=== PATIENT | male | born 1945 | race Caucasian/White ===

== ENCOUNTER 2017-06-09 07:43 | Day surgery (SDC) | payer OTHER, MEDICAID ==
[2017-06-09] MEDS ORDERED: NS 500 ML IV 500 ML IV ONE (07:52)
[2017-06-09] MEDS ORDERED: TETRACAINE 0.5% OPHTH 1 DOSE AFFEYE ONE ×3 (08:00→11:26)
[2017-06-09] MEDS ORDERED: VIGAMOX 0.5% OPHTH 1 DOSE AFFEYE ONE ×6 (08:05→11:42)
[2017-06-09] MEDS ORDERED: PROLENSA OPHTH 1 DOSE AFFEYE ONE (08:16)
[2017-06-09] MEDS ORDERED: ALPHAGAN-P OPHTH 1 DOSE AFFEYE ONE (08:17)
[2017-06-09] MEDS ORDERED: CYCLOGYL 1% OPHTH 1 DOSE OP ONE ×3 (08:18→08:20)
[2017-06-09] MEDS ORDERED: AK-DILATE 2.5% OPHTH 1 DOSE OP ONE ×3 (08:18→08:20)
[2017-06-09] MEDS ORDERED: MYDRIACIL OPHTH 1 DOSE AFFEYE ONE ×3 (08:18→08:20)
[2017-06-09] MEDS ORDERED: AK-DILATE 10% OPHTH 1 DOSE AFFEYE ONE (10:40)
[2017-06-09] MEDS ORDERED: XYLOCAINE-MPF 1% IJ ONE (11:27)
[2017-06-09] MEDS ORDERED: BSS OPHTH (PLAIN) 500 ML with VANCOMYCIN HCL 500 MG VIAL 25 MG, ADRENALINE CHL INJ 1 MG IR ONE ×3 (11:27)
[2017-06-09] MEDS ORDERED: DUOVISC IO ONE (11:27)
[2017-06-09] MEDS ORDERED: ADRENALINE CHL INJ IJ ONE (11:27)
[2017-06-09 15:04] VITALS: BP 147/67
== END 2017-06-09 12:02 | disposition home or self-care (01) ==
LOC: SURG1 07:43
PROVIDERS: ATTEND Ophthalmology
PROC: 08DK3ZZ Extraction of Left Lens, Percutaneous Approach (ICD-10-PCS; principal; 2017-06-09 12:45)
PROC: 08RK3JZ Replacement of Left Lens with Synthetic Substitute, Percutaneous Approach (ICD-10-PCS; principal; 2017-06-09 12:45)
DX: H25.12 Age-related nuclear cataract, left eye (principal); H25.012 Cortical age-related cataract, left eye
CPT/HCPCS: 99100; A4217; J0170; J3370